=== PATIENT | male | born 1980 | race Two or more races ===

== ENCOUNTER 2016-12-18 12:35 | Emergency (ER) | payer SELFPAY ==
[~2016-12-18 12:35] MED LIST: ALBUTEROL SULF8.5 GM IH; AZITHROMYCIN250 MG PO; NO MEDS; PHENERGAN25 M1 PO
[2016-12-18] MEDS ORDERED: CYMBALTA60 M1 PO (17:00)
[2016-12-18] MEDS ORDERED: [UNRECOGNIZED DRUG - OTHER] PO (17:01)
[2016-12-18 17:46] LABS: BASO % 0.4 % (0-2); EOS % 3.3 % (0-7); EOSINOPHIL ABSOLUTE COUNT 0.2 tho/cmm (0.0-0.7); HCT-HEMATOCRIT 38.5 % (36.0-53.5); HGB-HEMOGLOBIN 13.9 gm/dl (13.5-17.0); IMMATURE GRANULOCYTES ABSOLUTE 0.01 tho/cmm (0-0.03); IMMATURE GRANULOCYTES PERCENT 0.2 % (0-0.3); LYMPH % 31.4 % (20-45); LYMPH ABSOLUTE COUNT 1.6 tho/cmm (0.8-4.5); MCH (MEAN CORPUSCULAR HGB) 32.3 pg (28.0-32.0); MCHC MEAN CORPUSCULAR HGB CONC 36.1 % (32.0-36.0); MCV (MEAN CELL VOLUME) 89.5 fl (82.0-96.0); MEAN PLATELET VOLUME 8.9 cmc (9.4-12.4); MONO % 13.7 % (0-12); MONOCYTE ABSOLUTE COUNT 0.7 tho/cmm (0.0-1.2); NEUTROPHIL ABSOLUTE COUNT 2.6 tho/cmm (1.6-8.0); NEUTROPHIL-AUTOMATED 2.6 tho/cmm (1.6-8.0); PLATELET COUNT 176 tho/cmm (150-450); RED CELL DISTRIBUTION WIDTH 12.8 % (12.4-16.4); WHITE BLOOD COUNT 5.1 tho/cmm (4.0-10.0)
[2016-12-18 18:01] LABS: ALB/GLOB RATIO 0.8 (0.8-2.0); ALBUMIN 3.6 g/dl (3.5-5.0); ALKALINE PHOSPHATASE 83 U/L (33-138); ALT/SGPT 22 U/L (12-78); ANION GAP 13 mmol/L (0-20); AST/SGOT 26 U/L (10-40); BILIRUBIN,TOTAL 0.6 mg/dl (0.0-1.5); BLOOD UREA NITROGEN 14 mg/dl (6-24); CALCIUM 8.7 mg/dl (8.5-10.5); CARBON DIOXIDE-VENOUS 25 mmol/L (22-32); CHLORIDE 102 mmol/l (96-110); CREATININE 0.87 mg/dl (0.60-1.30); GLUCOSE 86 mg/dL (70-110); LIPASE 76 U/L (73-393); POTASSIUM 3.3 mmol/L (3.7-5.1); SODIUM 137 mmol/L (135-145); eGFR VALUE FOR BLACK >90 mL/Min
[2016-12-18 18:07] LABS: URINE BILIRUBIN NEGATIVE (NEG); URINE BLOOD NEGATIVE (NEG); URINE GLUCOSE (UA) NEGATIVE (NEG); URINE KETONE MODERATE (NEG); URINE LEUKOCYTE ESTERASE NEGATIVE (NEG); URINE NITRITE NEGATIVE (NEG); URINE PROTEIN SMALL (NEG); URINE SPECIFIC GRAVITY 1.025 (1.003-1.030)
[2016-12-18 18:08] LABS: URINE APPEARANCE SL CLOUDY; URINE COLOR BROWN
[2016-12-18 18:42] LABS: URINE MUCUS 2+; URINE RBC 0 /[HPF] (0-5); URINE WBC 0-3 /[HPF] (0-5)
[2016-12-18] MEDS ORDERED: VENTOLIN HFA18 G2 PO (18:55)
== END 2016-12-18 19:10 ==
LOC: EDMED 12:35
PROVIDERS: Emergency Medicine
DX: R10.11 Right upper quadrant pain (principal); E87.6 Hypokalemia; F17.200 Nicotine dependence, unspecified, uncomplicated; Z21 Asymptomatic human immunodeficiency virus [HIV] infection status